=== PATIENT | female | born 1985 | race Caucasian/White ===

== ENCOUNTER 2021-08-08 20:50 | Emergency (ER) | payer BC, OTHER ==
[~2021-08-08] VITALS: Ht 160 cm; Wt 108.9 kg
--- NOTE | 2021-08-08 21:06 | NUR ---
PT AMBULATED TO ER WITH C/O WORSENING PAIN AND NAUSEA FROM BACK PAIN. STATED SHE WAS SEEN 4 DAYS AGO AT [facility]RGENT [facility]ARE AND PRESCIBED KEFLEX 500MG. A/O X4 NO SOB OR LABORED BREATHING, AFEBRILE. DENIES CP/PRESSURE. CLEAR SPEECH , COMPLETE SENTENCES.
--- NOTE | 2021-08-08 21:21 | NUR ---
DR. RAMON AT BEDSIDE, MSE IN PROGRESS.
--- NOTE | 2021-08-08 21:37 | NUR ---
LAB AT BEDSIDE.
[2021-08-08] MEDS ORDERED: ONDANSETRON 4 MG/2 ML VIAL ONE (21:40)
[2021-08-08] MEDS ORDERED: HYDROMORPHONE 2 MG/1 ML DISP.SYRIN ONE (21:40)
[2021-08-08 21:49] LABS: CARBON DIOXIDE 24 mmol/L (21-32); CHLORIDE 101 mmol/L (98-107); CREATININE 0.8 mg/dL (0.6-1.3); GLUCOSE 122 mg/dL (74-106); POTASSIUM 3.8 mmol/L (3.5-5.1); UREA NITROGEN, BLOOD 11 mg/dL (7-18)
[2021-08-08 21:51] LABS: HEMATOCRIT 37.1 % (31.2-41.9); MEAN CORPUSCULAR HEMOGLOBIN 29.2 uug (24.7-32.8); MEAN CORPUSCULAR VOLUME 87.9 fL (75.5-95.3); PLATELET COUNT (AUTO) 332 K/uL (179-408)
[2021-08-08 21:57] LABS: *BILIRUBIN,URIN 1+ (NEGATIVE); *BLOOD, URINE 3+ (NEGATIVE); *CLARITY,URINE CLOUDY (CLEAR); *COLOR,URINE Brown (YELLOW); *KETONES,URINE TRACE (NEGATIVE); *UROBILINOGEN,URINE 0.2 E.U./dl (NORMAL); LEUKOCYTE ESTERASE ,URINE NEGATIVE (NEGATIVE); NITRITE, URINE NEGATIVE (NEGATIVE); UGLUCOSE NEGATIVE (NEGATIVE)
[2021-08-08 21:59] LABS: ALANINE AMINOTRANSFERASE 17 U/L (14-59); ALKALINE PHOSPHATASE 76 U/L (50-136); ASPARTATE AMINOTRANSFERASE 10 U/L (15-37); BILIRUBIN,DIRECT 0.1 mg/dL (0.0-0.2); BILIRUBIN,TOTAL 0.2 mg/dL (0.2-1.0); LIPASE 97 U/L (73-393); TOTAL PROTEIN, SERUM 7.7 g/dL (6.4-8.2)
[2021-08-08] MEDS: IV NORMAL SALINE 1000 ML BAG IV ONE (22:00)
[2021-08-08] MEDS: HYDROMORPHONE 1 MG/1 ML DISP.SYRIN IV ONE (22:01)
[2021-08-08] MEDS: ONDANSETRON 4 MG/2 ML VIAL IV ONE (22:01)
[2021-08-08] MEDS ORDERED: IV NORMAL SALINE 250 ML IV ONE (22:12)
[2021-08-08] MEDS ORDERED: SWABABLE VALVE TRANSFER SET EA MC ONE (22:12)
[2021-08-08] MEDS ORDERED: IOHEXOL 300MG/ML 100 ML INFUS..BTL ONE (22:12)
--- NOTE | 2021-08-08 22:15 | NUR ---
PT BEING TAKEN DOWN FOR CT.
[2021-08-08 22:17] LABS: RBC,URINE TNTC /HPF (0-3)
[2021-08-08 22:18] LABS: BACTERIA,URINE NONE SEEN /HPF (NONE SEEN); SQUAMOUS EPITHELIAL CELL,UR MODERATE /HPF (NONE SEEN)
--- NOTE | 2021-08-08 22:45 | NUR ---
PT RETURNED FROM CT.
[2021-08-08] MEDS ORDERED: OXYC-128 PO (23:24)
[2021-08-08] MEDS ORDERED: ONDA4TAB5 PO (23:24)
[2021-08-08] MEDS: KETOROLAC TROMETHAMINE 30 MG INJ IVP ONE (23:35)
[2021-08-08] MEDS ORDERED: KETOROLAC TROMETHAMINE 30 MG INJ ONE (23:43)
--- NOTE | 2021-08-08 23:51 | NUR ---
Patient discharged to home in stable condition. No changes in LOC, denies any pain/discomfort upon discharge. Written and verbal after care instructions given. Patient verbalizes understanding of instructions. Stressed follow up or return to ER for worsening s/s. Steady gait.
[2021-08-09 00:03] VITALS: BP 136/82
== END 2021-08-08 23:50 | disposition home or self-care (01) ==
LOC: ER 20:50
DX: N20.1 Calculus of ureter (principal); Z88.1 Allergy status to other antibiotic agents; E66.9 Obesity, unspecified; Z68.41 Body mass index [BMI] 40.0-44.9, adult; R03.0 Elevated blood-pressure reading, without diagnosis of hypertension; R11.0 Nausea
CPT/HCPCS: 36415; 74177; 80048; 80076; 81001; 83605; 83690; 84702; 85025; 96361; 96374; 96375; 99285; J1170; J1885; J2405; Q9967; A4663; J7030; J7050